=== PATIENT | female | born 1950 | race Native Hawaiian/Other Pacific Islander ===

== ENCOUNTER 2016-12-03 10:20 | Outpatient (CLI) | payer OTHER | END 2016-12-03 19:03 | disposition home or self-care (01) | LOC: MAMMO 10:20 | DX: Z12.31 Encounter for screening mammogram for malignant neoplasm of breast (principal) | CPT/HCPCS: G0202-TC ==

== ENCOUNTER 2016-12-15 14:15 | Outpatient (CLI) | payer OTHER | END 2016-12-15 15:30 | disposition home or self-care (01) | LOC: MAMMO 14:15 | DX: R92.8 Other abnormal and inconclusive findings on diagnostic imaging of breast (principal) | CPT/HCPCS: G0206-TC ==

== ENCOUNTER 2017-04-28 18:33 | Emergency (ER) | payer OTHER ==
[~2017-04-28] VITALS: Ht 157.5 cm; Wt 46.3 kg
[2017-04-28 20:24] VITALS: BP 133/52; TEMP 98.7
== END 2017-04-28 20:25 | disposition home or self-care (01) ==
LOC: ED 18:33
DX: Z48.01 Encounter for change or removal of surgical wound dressing (principal); Z98.890 Other specified postprocedural states
CPT/HCPCS: 99283; J7040

== ENCOUNTER 2018-01-10 14:39 | Outpatient (CLI) | payer OTHER | END 2018-01-10 23:17 | disposition home or self-care (01) | LOC: LABW 14:39 | DX: N39.0 Urinary tract infection, site not specified (principal) | CPT/HCPCS: 81000; 87086; 87088 ==

== ENCOUNTER 2018-02-14 11:06 | Outpatient (CLI) | payer OTHER ==
[2018-02-14 12:33] LABS: PLATELET COUNT 221 K/uL (152-353)
== END 2018-02-14 19:52 | disposition home or self-care (01) ==
LOC: LABW 11:06
PROVIDERS: Family Medicine
DX: I10 Essential (primary) hypertension (principal); Z83.3 Family history of diabetes mellitus; E55.9 Vitamin D deficiency, unspecified; C50.919 Malignant neoplasm of unspecified site of unspecified female breast; Z79.899 Other long term (current) drug therapy
CPT/HCPCS: 36415; 80053; 80061; 81000; 82306; 82607; 83036; 83735; 84439; 84443; 84550; 85027

== ENCOUNTER 2018-03-17 10:29 | Outpatient (CLI) | payer OTHER | END 2018-03-17 23:25 | disposition home or self-care (01) | LOC: MAMMO 10:29 | DX: C50.911 Malignant neoplasm of unspecified site of right female breast (principal) ==

== ENCOUNTER 2018-07-29 17:28 | Emergency (ER) | payer OTHER ==
[~2018-07-29] VITALS: Ht 157.5 cm; Wt 52.2 kg
[2018-07-29 17:42] VITALS: BP 172/72; TEMP 97.7
== END 2018-07-29 18:14 | disposition home or self-care (01) ==
LOC: ED 17:28
DX: I10 Essential (primary) hypertension (principal); F41.8 Other specified anxiety disorders
CPT/HCPCS: 99282

== ENCOUNTER 2018-08-24 12:38 | Emergency (ER) | payer OTHER ==
[~2018-08-24] VITALS: Ht 157.5 cm; Wt 52.2 kg
[2018-08-24 12:45] VITALS: BP 152/95; TEMP 98
[2018-08-24] MEDS ORDERED: ANAS1TAB PO (13:24)
[2018-08-24] MEDS ORDERED: NIFE30TA PO (13:24)
[2018-08-24] MEDS ORDERED: CLON1TAB18 PO (13:25)
== END 2018-08-24 13:29 | disposition home or self-care (01) ==
LOC: ED 12:38
DX: Z01.30 Encounter for examination of blood pressure without abnormal findings (principal)
CPT/HCPCS: 99281

== ENCOUNTER 2018-12-13 18:58 | Emergency (ER) | payer OTHER ==
[~2018-12-13] VITALS: Ht 157.5 cm; Wt 47.2 kg
[~2018-12-13 18:58] MED LIST: ANAS1TAB PO; CLON1TAB18 PO; NIFE30TA PO
[2018-12-13] MEDS ORDERED: ROBAXIN500 M1 PO (19:24)
[2018-12-13 21:02] LABS: PLATELET COUNT 222 K/uL (152-353)
[2018-12-13 21:09] LABS: POTASSIUM 3.4 mmol/L (3.6-5.2)
[2018-12-13 21:25] VITALS: BP 165/81; TEMP 98.2
== END 2018-12-13 21:25 | disposition home or self-care (01) ==
LOC: ED 18:58
PROVIDERS: Emergency Medicine
DX: C79.31 Secondary malignant neoplasm of brain (principal)
CPT/HCPCS: 80053; 85027; 93005; 99283

== ENCOUNTER 2019-01-07 12:05 | Emergency (ER) | payer OTHER ==
[~2019-01-07] VITALS: Ht 157.5 cm; Wt 47.2 kg
[~2019-01-07 12:05] MED LIST changes: +ROBAXIN500 M1 PO
[2019-01-07 12:30] VITALS: TEMP 98
[2019-01-07] MEDS ORDERED: DECADRON4 MG PO (12:53)
[2019-01-07 13:22] LABS: PLATELET COUNT 248 K/uL (152-353)
[2019-01-07 13:36] LABS: POTASSIUM 4.7 mmol/L (3.6-5.2)
[2019-01-07 15:15] VITALS: BP 168/69
== END 2019-01-07 15:16 | disposition home or self-care (01) ==
LOC: ED 12:05
PROVIDERS: Family Medicine
DX: N39.3 Stress incontinence (female) (male) (principal); R60.0 Localized edema
CPT/HCPCS: 80053; 81000; 85027; 99283

== ENCOUNTER 2019-01-07 20:49 | Emergency (ER) | payer OTHER ==
[~2019-01-07] VITALS: Ht 157.5 cm; Wt 47.2 kg
[~2019-01-07 20:49] MED LIST changes: +DECADRON4 MG PO
[2019-01-07 23:33] VITALS: BP 154/82; TEMP 97.2
== END 2019-01-07 23:43 | disposition home or self-care (01) ==
LOC: ED 20:49
DX: F41.0 Panic disorder [episodic paroxysmal anxiety] (principal); R06.4 Hyperventilation
CPT/HCPCS: 93005; 94664; 96374; 99284; J2060

== ENCOUNTER 2019-02-09 23:26 | Outpatient (CLI) | payer OTHER ==
[2019-02-10] MEDS ORDERED: OXYB5TAB64 PO (00:14)
[2019-02-10] MEDS ORDERED: DEXL60CA4 PO (00:14)
== END 2019-02-09 23:42 | disposition short-term general hospital (02) ==
LOC: AMB 23:26
DX: R56.9 Unspecified convulsions (principal); R41.0 Disorientation, unspecified
CPT/HCPCS: A0425; A0427

== ENCOUNTER 2019-02-09 23:50 | Emergency (ER) | payer OTHER ==
[~2019-02-09] VITALS: Ht 157.5 cm; Wt 47.2 kg
[2019-02-10] VITALS: TEMP 97.9
[2019-02-10] MEDS ORDERED: OXYB5TAB64 PO (00:14)
[2019-02-10] MEDS ORDERED: DEXL60CA4 PO (00:14)
[2019-02-10 00:54] LABS: PLATELET COUNT 254 K/uL (152-353)
[2019-02-10 01:01] LABS: POTASSIUM 5.4 mmol/L (3.6-5.2)
[2019-02-10 05:04] VITALS: BP 128/84
== END 2019-02-10 05:06 | disposition short-term general hospital (02) ==
LOC: ED 23:50
PROVIDERS: Family Medicine
DX: R56.9 Unspecified convulsions (principal); N39.0 Urinary tract infection, site not specified; C71.9 Malignant neoplasm of brain, unspecified; Z98.890 Other specified postprocedural states
CPT/HCPCS: 36415; 80053; 81000; 83605; 85007; 85027; 87077; 87086; 87088; 87186; 96365; 96375; 99285; J0696; J1953; J2060